=== PATIENT | male | born 1995 | race Caucasian/White ===

== ENCOUNTER 2018-09-11 19:25 | Emergency (ER) | payer OTHER ==
[2018-09-11 19:52] VITALS: BP 110/75
--- NOTE | 2018-09-11 19:57 | ER Report ---
History and Physical Time Seen By MD: 19:57 Hx. of Stated Complaint: PATIENT STATES HE CUT HIS FINGER ON A KNIFE HPI/ROS CHIEF COMPLAINT: Finger laceration HISTORY OF PRESENT ILLNESS: 23-year-old male patient presents to emergency room with complaint of finger laceration. Patient states that he was cutting pork approximately 3 hours prior to arrival and knife slipped and cut the left thumb. Patient did try using some clue to close it but states the bleeding was too significant. Patient then applied dressing and continue with his work. When he was able to finish his work he did come in for evaluation. He denies any numbness or tingling. He denies any weakness with movement. Patient states that he believes is longer than 5 years since his last tetanus shot. Allergies: Coded Allergies: No Known Drug Allergies (Unverified , 09/11/18) Home Meds Active Scripts Cephalexin 500 Mg Tab (KEFLEX 500 MG TAB) 500 Mg Tablet, 500 MG PO Q6H, #18 TAB Prov:REMI KOENIG 09/11/18 Past Medical/Surgical History Patient denies any pertinent medical or surgical history. Reviewed Nurses Notes: Yes Constitutional Vital Sign - Last 24 Hours 09/11/18 19:52 Temp 98.1 Pulse 89 Resp 15 B/P (MAP) 110/75 Pulse Ox 92 O2 Delivery Room Air Physical Exam General appearance: Alert no distress. Respiratory: Chest is non tender, lungs are clear to auscultation. Cardiac: Regular rate and rhythm. Skin: Patient has a 1.2 cm laceration to the distal tip of the left thumb. Does go into the subcutaneous tissue. There is no bleeding noted. DIFFERENTIAL DIAGNOSIS: After history and physical exam differential diagnosis was considered for laceration. Medical Decision Making ED Course/Re-evaluation ED Course Patient is admitted and examined, history and physical were obtained. Differential diagnoses were considered. On exam lungs are clear, heart is regular, patient does have a 1.2 cm laceration to the right distal thumb. The thumb was anesthetized, cleaned and repaired described below. Patient tolerated procedure well. Patient will follow-up with his primary care provider in 7-10 days have sutures removed. He is to keep the wound dry for 48 hours. He is to return to emergency room if condition worsens. Patient is to monitor for signs of infection. Patient verbalized understanding and agreement with plan. Procedure: Laceration repair. Verbal consent was obtained from the patient. The 1.2 cm laceration on the distal right thumb was anesthetized in the usual fashion. The wound was scrubbed, draped and explored to its base with a gloved finger. There were no deep structures involved. No tendon injury was identified. The wound was repaired with 3 simple interrupted sutures using 5-0 Prolene material. The wound repair was simple. The procedure was performed by myself. Decision to Disposition Date: Sep 11, 2018 Decision to Disposition Time: 21:00 Depart Departure Latest Vital Signs Vital Signs Date Time Temp Pulse Resp B/P (MAP) Pulse Ox O2 Delivery O2 Flow Rate FiO2 09/11/18 19:52 98.1 89 15 110/75 92 Room Air Impression: Primary Impression: Finger laceration Condition: Improved Disposition: HOME OR SELF-CARE New Scripts Cephalexin 500 Mg Tab (KEFLEX 500 MG TAB) 500 Mg Tablet 500 MG PO Q6H, #18 TAB Prov: REMI KOENIG 09/11/18 Patient Instructions: Finger Laceration (ED) Additional Instructions: Keep wound dry for 48 hours. Follow up with your primary care provider in the next 7-10 days to have sutures removed. Monitor for signs of infection; redness, swelling, heat, discharge, increasing pain or red streaking. Take Tylenol or Ibuprofen as needed for pain. Return to the ER with any concerns. You may change dressing as needed. Problem Qualifiers Primary Impression: Finger laceration Encounter type: initial encounter Finger: thumb Damage to nail status: w ithout damage Foreign body presence: without foreign body Laterality: right Qualified Codes: S61.011A - Laceration without foreign body of right thumb without damage to nail, initial encounter REMI KOENIG Sep 11, 2018 19:57
[2018-09-11] MEDS ORDERED: DIPHTH/TETANUS/ACEL. PERTUSSIS IM ONLY ONE (20:05)
[2018-09-11] MEDS ORDERED: CEPH500T7 PO (20:31)
[2018-09-11] MEDS ORDERED: CEPHALEXIN 500 MG CAP TH 2 CAP/BOTTLE PO ONE (20:35)
== END 2018-09-11 20:41 | disposition home or self-care (01) ==
LOC: ER 20:30
DX: S61.011A Laceration without foreign body of right thumb without damage to nail, initial encounter (principal); W26.0XXA Contact with knife, initial encounter
CPT/HCPCS: 90471; 90715; 99283